=== PATIENT | male | born 1935 | race Caucasian/White ===

== ENCOUNTER 2016-11-23 09:39 | Emergency (ER) | payer OTHER, BC ==
[2016-11-23 09:43] VITALS: RESP 16
--- NOTE | 2016-11-23 10:26 | EDPHY ---
H & P Stated Complaint: L FA skin tear HPI/ROS: Chief complaint: Left forearm skin tear History of present illness: 81-year-old male presents to the emergency department for a left forearm skin tear. Patient states he struck his left forearm against a piece of metal approximately 3 days ago sustaining the skin tear and bruising to his left forearm. He states he has been keeping it clean and dressing it. However it keeps peeling up. He denies other associated signs or symptoms. There is no pain. No difficulty using the left upper extremity. No abnormal coolness or paresthesias in the left upper extremity. No fevers, redness, swelling or warmth to the left upper extremity. His tetanus is up-to-date. - Personal History Current Tetanus/Diphtheria Vaccine: Yes Current Tetanus Diphtheria and Acellular Pertussis (TDAP): Yes Tetanus Vaccine Date: 2009 - Medical/Surgical History Hx Asthma: No Hx Chronic Respiratory Disease: No Hx Diabetes: No Hx Cardiac Disease: Yes Hx Renal Disease: No Hx Cirrhosis: No Hx Alcoholism: No Hx HIV/AIDS: No Hx Splenectomy or Spleen Trauma: No Other PMH: HTN, TIA, high cholesterol, lt knee replacement - Social History Smoking Status: Former smoker - Physical Exam Exam: General: Alert, nontoxic Skin: There is a 1.5 x 0.5 cm skin tear to the left forearm. Associated bruising around the skin tear. No active bleeding. No foreign body contamination. Musculoskeletal: Patient is moving his left upper extremity well with good strength. Vascular: Radial pulses 2+. Neurologic: Sensation intact throughout the left upper extremity. Constitutional: Initial Vital Signs Temperature (C) 36.6 C 11/23/16 09:41 Heart Rate 68 11/23/16 09:41 Respiratory Rate 16 11/23/16 09:41 Blood Pressure 150/70 H 11/23/16 09:41 O2 Sat (%) 98 11/23/16 09:41 O2 Delivery Mode Room Air Allergies/Adverse Reactions: hydrochlorothiazide Allergy (Verified 07/21/14 20:22) Home Medications: Medication Instructions Recorded Aspirin [Aspirin 81mg (*)] 81 mg PO DAILY 01/30/13 Bisoprolol Fumarate 10 mg PO DAILY 01/30/13 Lisinopril [Zestril 30 mg] 30 mg PO DAILY@18 01/30/13 Lisinopril [Zestril 40 mg (*)] 40 mg PO DAILY 01/30/13 Lovastatin 10 mg PO DAILY@18 01/30/13 Herbals/Supplements -Info Only 1 tab PO DAILY 01/31/13 Ferrous Sulfate [Slow Fe 140 MG 140 mg PO DAILY #30 tab.er 07/23/14 (*)] Ondansetron Odt [Zofran Odt 4 mg 4 - 8 mg PO Q6 PRN #5 tab 07/23/14 (*)] Sodium Chloride [Salt Tablet] 1,000 mg PO BIDMEAL #30 tab 07/23/14 Warfarin Sodium [Coumadin 5MG (*)] 5 mg PO DAILY16 #10 tab 07/23/14 celeCOXIB [Celebrex (*)] 200 mg PO DAILY #30 cap 07/23/14 traMADol [Ultram 50 mg (*)] 100 mg PO BID #30 tab 07/23/14 Medical Decision Making ED Course/Re-evaluation: Patient seen under the supervision of my secondary supervising physician Dr. Octavio Aguilera. Patient presents to the emergency department for evaluation of a skin tear. His left upper extremity is neurovascularly intact. He has good musculoskeletal control. There is no evidence of complications such as infection. This is a minimal skin tear. The skin tear has been cleaned and dressed. I believe it will heal well on its own, I do not believe suturing or Steri-Strips will improve outcome. He is referred to the wound Care Clinic for further care. Return precautions are given. Patient voiced understanding and agreement with plan. Differential Diagnosis: Included but not limited to skin tear, abrasion, laceration, unlikely bony fracture given lack of pain and good movement in the left upper extremity, unlikely infection given no fever, redness, swelling or warmth Departure - Departure Disposition: Home, Routine, Self-Care Clinical Impression: Skin tear Condition: Good Instructions: Skin Tear (ED), Acute Wounds (ED) Additional Instructions: Follow-up with the wound care clinic for continued care If symptoms worsen or new symptoms develop return to the emergency room for recheck Referrals: Bernice Mccormick MD [Primary Care Provider] - As per Instructions [facility] [Clinic] - As per Instructions
[2016-11-23 10:45] VITALS: BP 122/76; PULSE 81; TEMP 96.8; O2SAT 95
== END 2016-11-23 10:45 | disposition home or self-care (01) ==
DX: S51.812A Laceration without foreign body of left forearm, initial encounter (principal); I10 Essential (primary) hypertension; Z79.01 Long term (current) use of anticoagulants; Z79.82 Long term (current) use of aspirin; Z87.891 Personal history of nicotine dependence; W22.8XXA Striking against or struck by other objects, initial encounter

== ENCOUNTER 2018-01-27 05:21 | Emergency (ER) | payer OTHER, BC ==
[2018-01-27 05:26] VITALS: BP 189/92
--- NOTE | 2018-01-27 05:37 | EDPHY ---
H & P Stated Complaint: penis pain & L flank pain Time Seen by Provider: 01/27/18 05:27 HPI/ROS: Chief Complaint: Can not urinate HPI: 82-year-old male with a history of prostate disease and hypertension is not been able urinate since about 11:00 a.m.. Patient states the last had a normal urine stream was about 6:00 a.m. Yesterday afternoon. He has a significant urge to urinate. Does have some mild left flank pain. He does have a history of kidney stones and that this might be a kidney stone but really it is his difficulty urinating but not pain that his brought into the emergency department this morning. Denies any fevers or chills. Did vomit once. No chest pain or shortness of breath. ROS: 10 systems were reviewed and were negative except those elements noted in the HPI. PMH: Hypertension, BPH Social History: No smoking, no alcohol, no recreational drug use Family History: non-contributory Physical Exam: Gen: Awake, Alert, No Distress HEENT: Nose: no rhinorrhea Eyes: PERRLA, EOMI Mouth: Moist mucosa Neck: Supple, no JVD Chest: nontender, lungs clear to auscultation Heart: S1, S2 normal, no murmur Abd: Soft, palpable urinary bladder which is tender, no guarding Back: no CVA tenderness, no midline tenderness Ext: no edema, non-tender Skin: no rash Neuro: CN II-XII intact, Sensation grossly intact, Strength 5/5 in bilateral upper and lower extremities - Personal History Current Tetanus/Diphtheria Vaccine: Yes Current Tetanus Diphtheria and Acellular Pertussis (TDAP): Yes Tetanus Vaccine Date: 2009 - Medical/Surgical History Hx Asthma: No Hx Chronic Respiratory Disease: No Hx Diabetes: No Hx Cardiac Disease: Yes Hx Renal Disease: No Hx Cirrhosis: No Hx Alcoholism: No Hx HIV/AIDS: No Hx Splenectomy or Spleen Trauma: No Other PMH: kidney stone, HTN, TIA, high cholesterol, lt knee replacement - Social History Smoking Status: Former smoker Constitutional: Initial Vital Signs Temperature (C) 36.8 C 01/27/18 05:23 Heart Rate 67 01/27/18 05:23 Respiratory Rate 16 01/27/18 05:23 Blood Pressure 189/92 H 01/27/18 05:23 O2 Sat (%) 99 01/27/18 05:23 O2 Delivery Mode Room Air Allergies/Adverse Reactions: hydrochlorothiazide Allergy (Verified 07/21/14 20:22) Home Medications: Medication Instructions Recorded Aspirin [Aspirin 81mg (*)] 81 mg PO DAILY 01/30/13 Bisoprolol Fumarate 10 mg PO DAILY 01/30/13 Lisinopril [Zestril 30 mg] 30 mg PO DAILY@18 01/30/13 Lisinopril [Zestril 40 mg (*)] 40 mg PO DAILY 01/30/13 Lovastatin 10 mg PO DAILY@18 01/30/13 Herbals/Supplements -Info Only 1 tab PO DAILY 01/31/13 Ferrous Sulfate [Slow Fe 140 MG 140 mg PO DAILY #30 tab.er 07/23/14 (*)] Ondansetron Odt [Zofran Odt 4 mg 4 - 8 mg PO Q6 PRN #5 tab 07/23/14 (*)] Sodium Chloride [Salt Tablet] 1,000 mg PO BIDMEAL #30 tab 07/23/14 Warfarin Sodium [Coumadin 5MG (*)] 5 mg PO DAILY16 #10 tab 07/23/14 celeCOXIB [Celebrex (*)] 200 mg PO DAILY #30 cap 07/23/14 traMADol [Ultram 50 mg (*)] 100 mg PO BID #30 tab 07/23/14 Medical Decision Making ED Course/Re-evaluation: 82-year-old male with urinary retention. He has got over L on bladder scanning. I have ordered a Rico catheter and urinalysis. - Data Points Laboratory Results: 01/27/18 06:00 Urine Color Pending Urine Appearance Pending Urine pH Pending Ur Specific [place] Pending Urine Protein Pending Urine Ketones Pending Urine Blood Pending Urine Nitrate Pending Urine Bilirubin Pending Urine Urobilinogen Pending Ur Leukocyte Esterase Pending Urine Glucose Pending Departure - Departure Disposition: Home, Routine, Self-Care Clinical Impression: Urinary retention Condition: Good Instructions: Urinary Retention in Men (ED), Rico Catheter Placement and Care (ED) Additional Instructions: Leave the Rico catheter in place until you are seen the by the urologist. Follow up with the urologist in 3-4 days for further evaluation. Return to the emergency department for increasing pain, fevers, if the catheter stops draining, or for any other concerns. Referrals: Ladarius Wilson MD [Medical Doctor] - As per Instructions
== END 2018-01-27 06:39 | disposition home or self-care (01) ==
PROC: 0T9B70Z Drainage of Bladder with Drainage Device, Via Natural or Artificial Opening (ICD-10-PCS; principal; 2018-01-27)
DX: R33.9 Retention of urine, unspecified (principal); I10 Essential (primary) hypertension; Z87.891 Personal history of nicotine dependence

== ENCOUNTER 2018-01-29 00:42 | Emergency (ER) | payer OTHER, BC ==
[2018-01-29 01:07] VITALS: BP 161/76
--- NOTE | 2018-01-29 01:17 | EDPHY ---
H & P Time Seen by Provider: 01/29/18 00:55 HPI/ROS: CHIEF COMPLAINT: Hematuria HISTORY OF PRESENT ILLNESS: Patient is a 82-year-old male with history of prostate enlargement was seen here is 2 days ago and had Rico placed as he had urinary obstruction thought to be likely to his prostate enlargement. He has had no pain or fever and then today noticed le hematuria. He takes no blood thinners other than a baby aspirin per day. There was no trauma. He has no history of cancer including no history of renal cell carcinoma or bladder cancer. Has follow-up with Urology Lilian morning. REVIEW OF SYSTEMS: Constitutional: No fever, no chills. Eyes: No discharge. ENT: No sore throat. Cardiovascular: No chest pain, no palpitations. Respiratory: No cough, no shortness of breath. Gastrointestinal: No abdominal pain, no vomiting. Genitourinary: + hematuria. Musculoskeletal: No back pain. Skin: No rashes. Neurological: No headache. Smoking Status: Former smoker Physical Exam: General Appearance: Alert and no distress. Eyes: Pupils equal and round no injection. Respiratory: Chest is nontender, lungs are clear to auscultation. Cardiac: regular rate and rhythm. Gastrointestinal: Abdomen is soft and nontender, no masses, bowel sounds normal. Musculoskeletal: Neck is supple and nontender. Extremities have full range of motion and are nontender. Skin: No rashes or lesions. Constitutional: Initial Vital Signs Temperature (C) 36.4 C 01/29/18 00:49 Heart Rate 60 01/29/18 00:49 Respiratory Rate 18 01/29/18 00:49 Blood Pressure 149/78 H 01/29/18 00:49 O2 Sat (%) 98 01/29/18 00:49 O2 Delivery Mode Room Air Allergies/Adverse Reactions: hydrochlorothiazide Allergy (Verified 01/29/18 00:45) Home Medications: Medication Instructions Recorded Aspirin [Aspirin 81mg (*)] 81 mg PO DAILY 01/30/13 Bisoprolol Fumarate 10 mg PO DAILY 01/30/13 Lisinopril [Zestril 30 mg] 30 mg PO DAILY@01/30/13 Lisinopril [Zestril 40 mg (*)] 40 mg PO DAILY 01/30/13 Lovastatin 10 mg PO DAILY@01/30/13 Herbals/Supplements -Info Only 1 tab PO DAILY 01/31/13 Ferrous Sulfate [Slow Fe 140 MG 140 mg PO DAILY #30 tab.er 07/23/14 (*)] Antihistimines 01/29/18 B-12 01/29/18 Ciprofloxacin [Cipro] 500 mg PO BID 6 Days #12 tab 01/29/18 Fish Oil 1000 mg (*) 01/29/18 Tamsulosin HCl 01/29/18 Medical Decision Making ED Course/Re-evaluation: Patient here with hematuria starting today. He has had a Rico in for last couple days. He denies any pain, fever, trouble urinating. Urinalysis for reveals blood with white blood cells suggesting possible cystitis. Will cover him with ciprofloxacin though this is likely micro trauma from the Rico catheter. He was irrigated and urine was clear at time of discharge. He has follow-up in 48 hr with Urology. Urine culture was sent. - Data Points Laboratory Results: 01/29/18 01:10 Urine Color YELLOW Urine Appearance HAZY Urine pH 6.0 (5.0-7.5) Ur Specific [place] 1.012 (1.002-1.030) Urine Protein 1+ H (NEGATIVE) Urine Ketones NEGATIVE (NEGATIVE) Urine Blood 3+ H (NEGATIVE) Urine Nitrate NEGATIVE (NEGATIVE) Urine Bilirubin NEGATIVE (NEGATIVE) Urine Urobilinogen NEGATIVE EU EU (0.2-1.0) Ur Leukocyte Esterase 1+ H (NEGATIVE) Urine RBC 50-182 /hpf H /hpf (0-3) Urine WBC 50-182 /hpf H /hpf (0-3) Ur Epithelial Cells NONE SEEN /lpf /lpf (NONE-1+) Urine Mucus TRACE /lpf /lpf (NONE-1+) Urine Glucose NEGATIVE (NEGATIVE) Medications Given: Discontinued Medications Ciprofloxacin (Cipro) 500 mg PO EDNOW ONE PRN Reason: Protocol Stop: 01/29/18 01:42 Last Admin: 01/29/18 01:48 Dose: 500 mg Departure - Departure Disposition: Home, Routine, Self-Care Clinical Impression: Hematuria Condition: Good Instructions: Hematuria (ED) Additional Instructions: Sore severe hematuria is unclear. This is probably due to small amount of trauma from the Rico catheter. Urinalysis does suggest possible infection so we will treat 2 with ciprofloxacin 1 pill twice a day for 7 days. Return to the ER if he develops any fever, worsening pain. I suggest she call in 48 hr to check her urine culture. Follow up with Urology as scheduled. Referrals: Bernice Mccormick MD [Primary Care Provider] - As per Instructions Prescriptions: Ciprofloxacin [Cipro] 500 mg PO BID 6 Days #12 tab
[2018-01-29] MEDS ORDERED: CIPROFLOXACIN 500 MG TAB PO ONE (01:41)
== END 2018-01-29 02:03 | disposition home or self-care (01) ==
PROC: 3E1K78Z Irrigation of Genitourinary Tract using Irrigating Substance, Via Natural or Artificial Opening (ICD-10-PCS; principal; 2018-01-29)
DX: R31.9 Hematuria, unspecified (principal); Z87.891 Personal history of nicotine dependence

== ENCOUNTER → 2018-08-01 | Outpatient (CLI) | payer OTHER, BC | LOC: EMCIMAGING 14:31 | DX: M75.121 Complete rotator cuff tear or rupture of right shoulder, not specified as traumatic (principal); M75.81 Other shoulder lesions, right shoulder; M19.011 Primary osteoarthritis, right shoulder; M62.511 Muscle wasting and atrophy, not elsewhere classified, right shoulder | CPT/HCPCS: 73221-PN ==